=== PATIENT | male | born 1980 | race Caucasian/White ===

== ENCOUNTER 2022-12-07 15:23 | Inpatient (IN) ==
[2022-12-07] MEDS ORDERED: NS 1,000 ML IV 1,000 ML IV ONE (16:16)
[2022-12-07 16:36] VITALS: BMI 37.6
[2022-12-07 16:58] LABS: BASOPHILS % (AUTO) 0.1 % (0.2-1.0); EOSINOPHILS # (AUTO) 0.1 x10^3/uL (0.0-0.2); EOSINOPHILS % (AUTO) 0.4 % (0.9-2.9); HEMATOCRIT 43.5 % (42.0-54.0); HEMOGLOBIN 14.5 g/dL (13.5-18.0); LYMPHOCYTES # (AUTO) 0.5 X10^3/uL (1.3-2.9); LYMPHOCYTES % (AUTO) 3.5 % (21.0-51.0); MEAN CORPUSCULAR HEMOGLOBIN 27.3 pg (27.0-34.0); MEAN CORPUSCULAR HGB CONC 33.4 g/dL (33.0-35.0); MEAN CORPUSCULAR VOLUME 81.7 fL (80.0-100.0); MEAN PLATELET VOLUME 7.5 fL (7.4-11.0); MONOCYTES # (AUTO) 0.8 x10^3/uL (0.3-0.8); MONOCYTES % (AUTO) 4.9 % (0.0-13.0); NEUTROPHILS # (AUTO) 14.2 x10^3/uL (2.2-4.8); NEUTROPHILS % (AUTO) 91.1 % (42.0-75.0); PLATELET COUNT 265 X10^3/uL (150.0-450.0); RED BLOOD COUNT 5.32 X10^6/uL (4.7-6.0); RED CELL DISTRIBUTION WIDTH 13.7 % (11.6-16.5); WHITE BLOOD COUNT 15.6 X10^3/uL (3.6-10.0)
[2022-12-07 17:13] LABS: ALANINE AMINOTRANSFERASE 398 Units/L (12-78); ALBUMIN 4.3 g/dL (3.4-5.0); ALKALINE PHOSPHATASE 147 Units/L (46-116); AMYLASE 46 Units/L (25-115); ASPARTATE AMINO TRANSFERASE 497 Units/L (15-37); BLOOD UREA NITROGEN 13 mg/dL (7-18); CALCIUM 8.6 mg/dL (8.5-10.1); CHLORIDE 101 mmol/L (98-107); COR NA(FOR HYPERGLY) 141 mmol/L (136-145); CREATININE 1.28 mg/dL (0.70-1.30); GLUCOSE 125 mg/dL (65-99); LIPASE 120 Units/L (73-393); SODIUM 140 mmol/L (136-145); TOTAL PROTEIN 7.7 g/dL (6.4-8.2); eGFR NON BLACK RACES > 60 (>60)
[2022-12-07] MEDS: PEPCID 20 MG VIAL 20 MG in NS 50 ML IV 50 ML IV SCH ×2 (17:24→21:23)
[2022-12-07] MEDS: PROTONIX INJ 40 MG VIAL IVP SCH ×2 (17:24→21:23)
[2022-12-07 17:40] LABS: PLATELET MORPHOLOGY COMMENT NORMAL (NORMAL)
[2022-12-07] MEDS: NS 1,000 ML IV 1,000 ML IV SCH (18:45)
[2022-12-07 19:31] LABS: APPEARANCE,URINE CLEAR (CLEAR); COLOR,URINE YELLOW (YELLOW)
[2022-12-07 19:32] LABS: BILIRUBIN,URINE NEGATIVE (NEGATIVE); BLOOD/HEMOGLOBIN,URINE NEGATIVE (NEGATIVE); GLUCOSE, URINE NEGATIVE (NEGATIVE); KETONES,URINE NEGATIVE (NEGATIVE); LEUKOCYTE ESTERASE ,URINE NEGATIVE (NEGATIVE); NITRITES,URINE NEGATIVE (NEGATIVE); PROTEIN,URINE NEGATIVE (NEGATIVE); UROBILINOGEN,URINE NORMAL (NORMAL)
[2022-12-07] MEDS: ZOFRAN INJ 4 MG VIAL IVP PRN (21:18)
[2022-12-08] MEDS: NS 1,000 ML IV 1,000 ML IV SCH ×5 (00:34→23:23)
[2022-12-08] MEDS: TYLENOL 325 MG TAB PO PRN ×2 (03:42→20:04)
--- NOTE | 2022-12-08 05:40 | US ---
HISTORYRight upper quadrant painSTUDYRight quadrant abdominal ultrasoundCOMPARISONNoneTECHNIQUEMultipl e latif scale and color flow Doppler images of the right upper quadrant were obtained.FINDINGSThe liver heterogeneous echotexture likely the basis of fatty liver infiltration. No focal intraparenchymal mass or intrahepatic biliary ductal dilatation can be observed. The gallbladder fails to demonstrate evidence for cholelithiasis or layering sludge . The common bile duct is unremarkable measuring 3 mm. No pericholecystic fluid can be identified. However, gallbladder does appear to have a prominent wall measuring 4 mm in greatest thickness. This is a nonspecific finding may be on the basis of associated hepatocellular disease..The right kidney appears normal in size without focal parenchymal mass or nephrolithiasis. The right kidney measurers 11.4 x 4.4 x 5.4 cm. No hydronephrosis or perirenal fluid can be observed. The pancreas is largely obscured by overlying bowel gas.IMPRESSIONFatty liver infiltration.Nonspecific gallbladder wall thickening that is nonspecific and may be on the basis of associated pattern cellular disease.Electronically signed by: YVONNE CHAU (Dec 08, 2022 05:38:56)
[2022-12-08 06:25] LABS: BASOPHILS % (AUTO) 0.2 % (0.2-1.0); EOSINOPHILS % (AUTO) 0.1 % (0.9-2.9); HEMATOCRIT 40.6 % (42.0-54.0); HEMOGLOBIN 13.8 g/dL (13.5-18.0); LYMPHOCYTES # (AUTO) 0.3 X10^3/uL (1.3-2.9); LYMPHOCYTES % (AUTO) 1.8 % (21.0-51.0); MEAN CORPUSCULAR HEMOGLOBIN 27.5 pg (27.0-34.0); MEAN CORPUSCULAR VOLUME 80.9 fL (80.0-100.0); MEAN PLATELET VOLUME 8.2 fL (7.4-11.0); MONOCYTES # (AUTO) 0.7 x10^3/uL (0.3-0.8); MONOCYTES % (AUTO) 4.3 % (0.0-13.0); NEUTROPHILS # (AUTO) 15.6 x10^3/uL (2.2-4.8); NEUTROPHILS % (AUTO) 93.6 % (42.0-75.0); PLATELET COUNT 263 X10^3/uL (150.0-450.0); RED BLOOD COUNT 5.02 X10^6/uL (4.7-6.0); RED CELL DISTRIBUTION WIDTH 13.8 % (11.6-16.5); WHITE BLOOD COUNT 16.7 X10^3/uL (3.6-10.0)
[2022-12-08 07:02] LABS: ALANINE AMINOTRANSFERASE 717 Units/L (12-78); ALBUMIN 3.6 g/dL (3.4-5.0); ALKALINE PHOSPHATASE 144 Units/L (46-116); ASPARTATE AMINO TRANSFERASE 496 Units/L (15-37); BLOOD UREA NITROGEN 14 mg/dL (7-18); CALCIUM 8.2 mg/dL (8.5-10.1); CARBON DIOXIDE 24.8 mmol/L (21-32); CHLORIDE 102 mmol/L (98-107); COR NA(FOR HYPERGLY) 139 mmol/L (136-145); CREATININE 1.33 mg/dL (0.70-1.30); GLUCOSE 114 mg/dL (65-99); POTASSIUM 3.4 mmol/L (3.5-5.1); SODIUM 139 mmol/L (136-145); TOTAL PROTEIN 6.8 g/dL (6.4-8.2); eGFR NON BLACK RACES > 60 (>60)
[2022-12-08 07:35] LABS: BAND NEUTROPHILS % 20 % (0-10); PLATELET MORPHOLOGY COMMENT NORMAL (NORMAL)
[2022-12-08] MEDS ORDERED: BENTYL CAP 10 MG PO PRN (08:47)
[2022-12-08] MEDS: PROTONIX INJ 40 MG VIAL IVP SCH ×2 (08:50→20:03)
[2022-12-08] MEDS: PEPCID 20 MG VIAL 20 MG in NS 50 ML IV 50 ML IV SCH ×2 (09:13→20:03)
[2022-12-08] MEDS: FORTAZ or TAZICEF VIAL INJ 1 G in NS 100 ML IV 100 ML IV SCH ×3 (11:25→21:05)
--- NOTE | 2022-12-08 14:32 | DR.H&P ---
H&P - History & Physical for Day of: H&P Date: 12/07/22 - Chief Complaint Chief Complaint: ABDOMINAL PAIN, NAUSEA AND VOMITING - History of Present Illness History of Present Illness: IS A 42 YEAR OLD PATIENT OF OURS. HE PRESENTED TO THE OFFICE WITH COMPLAINTS OF RIGHT UPPER QUADRANT AND EPIGASTRIC PAIN AND NAUSEA AND VOMITING. HE REPORTS THAT SYMPTOMS STARTED FIVE OR 6 WEEKS AGO. HE DESCRIBES PAIN BURNING AND INTERMITTENT. PAIN AND NAUSEA/VOMITING ARE OFTEN WORSE ABOUT AN HOUR AFTER EATING. HE REPORTS THAT HIS SYMPTOMS ARE PERSISTENTLY GETTING WORSE. HE HAS BEEN TAKING PANTOPRAZOLE 40MG BID, DICYCLOMINE 20MG QID PRN, AND GI COCKTAIL QID SINCE 11/14/22 WITHOUT ANY IMPROVEMENT IN SYMPTOMS. DECISION WAS MADE TO ADMIT PATIENT TO THE HOSPITAL FOR FURTHER EVALUATION AND TREATMENT. ON ARRIVAL TO THE HOSPITAL, HIS VITALS WERE: 98.1-76-18-96%-149/84. LABS WERE OBTAINED. WBC 15.6, RBC 5.32, HGB 14.5, HCT 43.5, PLT COUNT 265, SODIUM 140, POTASSIUM 4.0, CHLORIDE 101, CARBON DIOXIDE 31.0, BUN 13, CREATININE 1.28, GLUCOSE 125, CALCIUM 8.6, TOTAL BILIRUBIN 2.00, AST 497, ALT 398, ALK PHOS 147, TOTAL PROTEIN 7.7, ALBUMIN 4.3. A URINALYSIS WAS OBTAINED AND WAS UNREMARKABLE. A URINE CULTURE WAS SET UP. A GALLBLADDER ULTRASOUND WAS OBTAINED AND REVELED: Fatty liver infiltration. Nonspecific gallbladder wall thickening that is nonspecific and may be on the basis of associated pattern cellular disease. HE WAS STARTED ON NORMAL SALINE AT 150 ML/HR, FORTAZ 1G IV Q8H, PEPCID 20MG IV Q12H, PROTONIX 40MG IV BID, DEMEROL 25MG IV Q6H PRN, ZOFRAN 4MG IV Q4H PRN, TYLENOL 650MG PO Q4H PRN, AND DICYCLOMINE 20MG PO QID PRN. WE WILL OBTAIN A HIDA SCAN. WE WILL ALSO OBTAIN A MRCP TO RULE OUT BILIARY TRACT OBSTRUCTION DUE TO ELEVATED LIVER FUNCTION TESTS. OTHERWISE, WE WILL FOLLOW-UP WITH AM LABS AND CONTINUE TO MONITOR. TIME SPENT ON CLINICAL ASSESSMENT, REVIEWING LABS AND IMAGING, DECISION MAKING, AND DOCUMENTATION GREATER THAN 75 MINUTES. - Past Medical History Past Medical History: GERD - Past Surgical History Surgical History: Ortho Surgery Additional Surgical History: RIGHT SHOULDER - Family History Family Medical History: Diabetes Mellitus - Social History Does patient currently use any type of tobacco product: No Have you used tobacco products in the last 12 months: No Type of Tobacco Use: None Does any household member use tobacco: No Alcohol Use: None Drug Use: None - Medications Home Medications: Home Medications Medication Instructions Recorded Confirmed Type Gi-Cocktail 10 ml PO QID PRN Acid Reflux 12/07/22 12/07/22 History dicyclomine 20 mg tablet 1 tab PO QID PRN 12/07/22 12/07/22 History pantoprazole 40 mg tablet,delayed 1 cap PO BID 12/07/22 12/07/22 History release - Review of Systems Constitutional: No Symptoms Reported Eyes: No Symptoms Reported ENT: No Symptoms Reported Respiratory: No Symptoms Reported Cardiovascular: No Symptoms Reported Gastrointestinal: See HPI, Nausea, Vomiting, Abdominal Pain. denies: Constipation, Melena, Hematochezia Genitourinary: No Symptoms Reported Musculoskeletal: No Symptoms Reported Skin: No Symptoms Reported Neurological: No Symptoms Reported - Physical Exam Vital Signs: Temperature 100 F Temperature 98.1 F Pulse Rate [Left Brachial] 92 Pulse Rate [Left Brachial] 76 Respiratory Rate 20 Respiratory Rate 18 Blood Pressure [Left Arm] 118/59 Blood Pressure [Left Arm] 149/84 O2 Sat by Pulse Oximetry 93 O2 Sat by Pulse Oximetry 96 Oriented: Normal Eyes: Normal Ear: Normal Nose: Normal Throat: Normal Respiratory: Clear Throughout Cardiovascular: Normal : Normal Auscultation: Bowel Sounds: Normal Palpation: Normal Tenderness: RUQ, Epigastric, Moderate Skin: Normal Musculoskeletal: Normal Psychiatric: Normal Mood Description: Calm Affect: Normal Speech Pattern: Clear - Assessment/Plan (1) Abdominal pain Qualifiers: Abdominal location: epigastric Qualified Code(s): R10.13 - Epigastric pain Status: Acute Plan: ADMIT, NORMAL SALINE AT 150 ML/HR, FORTAZ 1G IV Q8H, PEPCID 20MG IV Q12H, PROTONIX 40MG IV BID, DEMEROL 25MG IV Q6H PRN, ZOFRAN 4MG IV Q4H PRN, TYLENOL 650MG PO Q4H PRN, AND DICYCLOMINE 20MG PO QID PRN. OBTAIN HIDA SCAN AND MRCP (2) Nausea and vomiting Qualifiers: Vomiting type: unspecified Qualified Code(s): R11.2 - Nausea with vomiting, unspecified Status: Acute (3) Hyperbilirubinemia Status: Acute (4) Elevated liver function tests Status: Acute (5) Fever Qualifiers: Fever type: unspecified Qualified Code(s): R50.9 - Fever, unspecified Status: Acute (6) GERD (gastroesophageal reflux disease) Qualifiers: Esophagitis presence: esophagitis presence not specified Qualified Code(s): K21.9 - Gastro-esophageal reflux disease without esophagitis Status: Chronic - Allergies Allergies/Adverse Reactions: Allergies Allergy/AdvReac Type Severity Reaction Status Date / Time penicillin G Allergy Verified 12/07/22 16:37
[2022-12-08] MEDS: DEMEROL INJ IVP PRN (14:39)
[2022-12-08] MEDS: ZOFRAN INJ 4 MG VIAL IVP PRN (14:41)
--- NOTE | 2022-12-08 16:19 | MRI ---
HISTORYELEVATED LIVER ENZYMES, ABD PAINSTUDYMRCPCOMPARISONUltrasound dated 12/07/2022TECHNIQUEMultiplanar multi sequences through the abdomen were performed without contrast. MRCP with 3D MPGR was performed.FINDINGSThe liver measures in length approximately 18.3 centimeters with mild fatty changes the spleen measures 10.5 centimeters.There is no evidence of gallstones. Gallbladder measures in transverse dimension 3.6 centimeters. The wall measures approximately 2-3 millimeters, no significant stranding.No significant intrahepatic or extrahepatic biliary dilatation. Common bile duct measures in the distal aspect approximately 4-5 millimeters the pancreatic duct is nondilatedThere is no dominant cystic lesions in the pancreasThere ismild periportal edema.There is no suspicious for filling defects in the common bile ductPancreas demonstrate no abnormal signal. There is no adrenal massesThe spleen demonstrate no focal abnormalities.IMPRESSIONNo evidence of cholelithiasisNo significant distended gallbladder with trace pericholecystic fluid less, likely acute cholecystitis.No intra or extrahepatic biliary dilatation. No suspicious filling defects.Mild periportal edema can be seen with hepatitis. Clinical correlation is recommendedElectronically signed by: Sue Dailey (Dec 08, 2022 16:18:49)
--- NOTE | 2022-12-08 17:15 | NM ---
HISTORYRUQ PAIN, N/VSTUDYHIDA/HEPATOBILIARY SCAN W/EFCOMPARISONNoneTECHNIQUEThe patient was intravenously administered 5.7 mCi Tc-99m Choletec. Sequential planar anterior images were obtained of the abdomen for 2 hours.FINDINGSNormal radionuclide uptake in the liver parenchyma on the 5 minute image.No radionuclide material visualized in the intra/extrahepatic biliary ducts, small bowel or gallbladder during the 2 hours of imaging.IMPRESSIONPersistent hepatic gram with radionuclide material visualized in the intra/extrahepatic biliary ducts, small bowel or gallbladder during the 2 hours of imaging. Finding is concerning for a high-grade biliary obstruction.Electronically signed by: Gaurav Quintana (Dec 08, 2022 17:14:13)
[2022-12-09] MEDS: NS 1,000 ML IV 1,000 ML IV SCH ×3 (05:13→20:31)
[2022-12-09] MEDS: FORTAZ or TAZICEF VIAL INJ 1 G in NS 100 ML IV 100 ML IV SCH ×3 (05:13→22:15)
[2022-12-09] MEDS ORDERED: MICRO K EXTEN CAP 10 MEQ PO PRN (05:26)
[2022-12-09] MEDS ORDERED: K-DUR TAB 20 MEQ PO PRN (05:26)
[2022-12-09] MEDS ORDERED: MAGNESIUM SULFATE 1 GRAM/100 mL PREMIX 1 G/100 ML BAG IV PRN (05:26)
[2022-12-09] MEDS ORDERED: KLOR-CON PO PRN (05:26)
[2022-12-09] MEDS ORDERED: POTASSIUM CHL 40 MEQ/NS 0.45% 500 ML IV PRN (05:26)
[2022-12-09] MEDS ORDERED: POTASSIUM CHLORIDE LIQ 20 MEQ UDC PO PRN (05:26)
[2022-12-09] MEDS ORDERED: POTASSIUM CHL 60 MEQ/NS 0.45% 500 ML IV PRN (05:26)
[2022-12-09] MEDS ORDERED: K-RIDER 10 MEQ/NS 100 ML 10 MEQ/100 ML BAG IV PRN (05:26)
[2022-12-09 06:45] LABS: BASOPHILS % (AUTO) 0.4 % (0.2-1.0); EOSINOPHILS # (AUTO) 0.3 x10^3/uL (0.0-0.2); EOSINOPHILS % (AUTO) 2.3 % (0.9-2.9); HEMATOCRIT 38.5 % (42.0-54.0); HEMOGLOBIN 13.3 g/dL (13.5-18.0); LYMPHOCYTES # (AUTO) 0.5 X10^3/uL (1.3-2.9); LYMPHOCYTES % (AUTO) 4.5 % (21.0-51.0); MEAN CORPUSCULAR HEMOGLOBIN 28.1 pg (27.0-34.0); MEAN CORPUSCULAR HGB CONC 34.4 g/dL (33.0-35.0); MEAN CORPUSCULAR VOLUME 81.5 fL (80.0-100.0); MEAN PLATELET VOLUME 7.9 fL (7.4-11.0); MONOCYTES # (AUTO) 0.8 x10^3/uL (0.3-0.8); MONOCYTES % (AUTO) 7.2 % (0.0-13.0); NEUTROPHILS # (AUTO) 9.5 x10^3/uL (2.2-4.8); NEUTROPHILS % (AUTO) 85.6 % (42.0-75.0); PLATELET COUNT 213 X10^3/uL (150.0-450.0); RED BLOOD COUNT 4.72 X10^6/uL (4.7-6.0); WHITE BLOOD COUNT 11.1 X10^3/uL (3.6-10.0)
[2022-12-09 06:53] LABS: ALANINE AMINOTRANSFERASE 417 Units/L (12-78); ALBUMIN 3.2 g/dL (3.4-5.0); ALKALINE PHOSPHATASE 115 Units/L (46-116); ASPARTATE AMINO TRANSFERASE 160 Units/L (15-37); BLOOD UREA NITROGEN 13 mg/dL (7-18); CARBON DIOXIDE 28.8 mmol/L (21-32); CHLORIDE 103 mmol/L (98-107); COR CA(FOR HYPOALB) 8.6 mg/dL (8.5-10.1); COR NA(FOR HYPERGLY) 139 mmol/L (136-145); CREATININE 1.36 mg/dL (0.70-1.30); GLUCOSE 113 mg/dL (65-99); MAGNESIUM 1.8 mg/dL (2.0-2.9); POTASSIUM 3.7 mmol/L (3.5-5.1); SODIUM 139 mmol/L (136-145); TOTAL PROTEIN 6.7 g/dL (6.4-8.2); eGFR NON BLACK RACES > 60 (>60)
[2022-12-09] MEDS: DEMEROL INJ IVP PRN ×2 (08:51→20:32)
[2022-12-09] MEDS: PEPCID 20 MG VIAL 20 MG in NS 50 ML IV 50 ML IV SCH ×2 (08:51→20:27)
[2022-12-09] MEDS: PROTONIX INJ 40 MG VIAL IVP SCH ×2 (08:51→20:27)
[2022-12-09 12:30] LABS: IRON 20 ug/dL (50-175)
--- NOTE | 2022-12-09 18:06 | PCM.PROG ---
Progress Note - Progress Note for Day of Date of Exam: 12/09/22 - Subjective Subjective: IS A 42 YEAR OLD PATIENT OF OURS. HE IS CURRENTLY INPATIENT STATUS FOR TREATMENT OF HYPERBILIRUBINEMIA, ELEVATED LIVER FUNCTION TESTS, ABDOMINAL PAIN, NAUSEA AND VOMITING, AND FEVER. HE HAS A PMH OF GERD. TODAY, HE IS ALERT AND ORIENTED, LYING IN BED ON MORNING ROUNDS. HE CONTINUES TO COMPLAIN OF PAIN TO THE RUQ AND EPIGASTRIC AREA. HE ALSO CONTINUES TO HAVE OCCASIONAL NAUSEA. HE DENIES SIGNIFICANT IMPROVEMENT IN SYMPTOMS SINCE ADMISSION. ON EXAMINATION TODAY, HE IS NOTED WITH JAUNDICE OF THE SCLERA AND AROUND THE EYES. HEART IS REGULAR IN RATE AND RHYTHM. BILATERAL LUNGS ARE NOTED WITH DIMINISHED LUNG SOUNDS THROUGHOUT. ABDOMEN IS ROUND, SOFT, AND NOTED WITH TENDERNESS TO THE RUQ ON PALPATION. NORMAL BOWEL SOUNDS ARE NOTED IN ALL QUADRANTS. GOOD MOVEMENT NOTED TO UPPER AND LOWER EXTREMITIES WITH NO EDEMA NOTED. HIS VITALS THIS MORNING WERE: 98.0-63-20-95%-135/69. LABS WERE OBTAINED. WBC 11.1, RBC 4.72, HGB 13.3, HCT 38.5, PLT COUNT 213, SODIUM 139, POTASSIUM 3.7, CHLORIDE 103, BUN 13, CREATININE 1.36, GLUCOSE 113, CALCIUM 8.0, MAGNESIUM 1.8, IRON 20, FERRITIN 661, TOTAL BILI INCREASED TO 5.30, AST 160, ALT 417, ALK PHOS 115, TOTAL PROTEIN 6.7, ALBUMIN 3.2. A HEPATITIS PANEL IS PENDING. URINE CULTURE IS PENDING. A HIDA SCAN WAS OBTAINED YESTERDAY AND REVEALED: Persistent hepatic gram with radionuclide material visualized in the intra/extrahepatic biliary ducts, small bowel or gallbladder during the 2 hours of imaging. Finding is concerning for a high-grade biliary obstruction. MRCP WAS OBTAINED AND REVEALED: No evidence of cholelithiasis. No significant distended gallbladder with trace pericholecystic fluid less, likely acute cholecystitis. No intra or e xtrahepatic biliary dilatation. No suspicious filling defects. Mild periportal edema can be seen with hepatitis. HE IS CURRENTLY RECEIVING NORMAL SALINE AT 150 ML/HR, FORTAZ 1G IV Q8H, PEPCID 20MG IV Q12H, PROTONIX 40MG IV BID, DEMEROL 25MG IV Q6H PRN, ZOFRAN 4MG IV Q4H PRN, TYLENOL 650MG PO Q4H PRN, AND DICYCLOMINE 20MG PO QID PRN. 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 HE FEELS THAT PATIENT MAY HAVE CHOLESTATIC JAUNDICE, HE WAS RECENTLY TAKING [place] AND HAS EXPERIENCED A RAPID WEIGHT LOSS. HE HAS LOST ABOUT 60 POUNDS OVER THE PAST SEVERAL MONTHS. WILL SEE HIM TODAY AND ORDER SOME ADDITIONAL LABS. WE WILL ALSO CONSULT , GENERAL SURGEON, DUE TO SUSPECTED ACUTE CHOLEC YSTITIS. OTHERWISE, WE WILL CONTINUE WITH CURRENT PLAN OF CARE TODAY. WE WILL FOLLOW-UP WITH AM LABS AND CONTINUE TO MONITOR. TIME SPENT ON CLINICAL ASSESSMENT, REVIEWING LABS AND IMAGING, DECISION MAKING, AND DOCUMENTATION GREATER THAN 45 MINUTES. - Past Medical Family Social History Past Med/Fam/Surg Hx: No changes since H&P Allergies: Allergies penicillin G Allergy (Verified 12/07/22 16:37) - Review of Systems ROS: No change since H&P - Vital Signs and I&O's Vital Signs: Temperature 97.8 F Temperature 98.1 F Pulse Rate [Left Brachial] 56 Pulse Rate [Left Brachial] 76 Respiratory Rate 20 Respiratory Rate 18 Blood Pressure [Left Arm] 157/84 Blood Pressure [Left Arm] 149/84 O2 Sat by Pulse Oximetry 97 O2 Sat by Pulse Oximetry 96 Intake and Output: Intake & Output 12/07/22 12/08/22 12/09/22 12/10/22 11:59 11:59 11:59 11:59 Intake Total 2664 / 2664 2778 / 2778 1469 / 1469 Balance 2664 / 2664 2778 / 2778 1469 / 1469 - Physical Exam Oriented: Normal Eyes: Other (JAUNDICE ) Ear: Normal Nose: Normal Throat: Normal Respiratory: Generalized, Diminished Cardiovascular: Normal : Normal Auscultation: Bowel Sounds: Normal Tenderness: RUQ, Epigastric, Moderate Skin: Other (JAUNDICE ) Musculoskeletal: Normal Psychiatric: Normal Mood Description: Calm Affect: Normal Speech Pattern: Clear - Laboratory and Diagnostics Result Diagrams: 12/09/22 06:20 12/09/22 06:20 Labs: 12/07/22 19:00 Urine,Clean Catch Urine Culture - Final Laboratory WBC 11.1 X10^3/uL (3.6-10.0) H 12/09/22 06:20 RBC 4.72 X10^6/uL (4.7-6.0) 12/09/22 06:20 Hgb 13.3 g/dL (13.5-18.0) L 12/09/22 06:20 Hct 38.5 % (42.0-54.0) L 12/09/22 06:20 MCV 81.5 fL (80.0-100.0) 12/09/22 06:20 MCH 28.1 pg (27.0-34.0) 12/09/22 06:20 MCHC 34.4 g/dL (33.0-35.0) 12/09/22 06:20 RDW 14.0 % (11.6-16.5) 12/09/22 06:20 Plt Count 213 X10^3/uL (150.0-450.0) 12/09/22 06:20 Plt Count Comment Adequate (ADEQUATE) 12/08/22 05:07 MPV 7.9 fL (7.4-11.0) 12/09/22 06:20 Neut % (Auto) 85.6 % (42.0-75.0) H 12/09/22 06:20 Lymph % (Auto) 4.5 % (21.0-51.0) L 12/09/22 06:20 [place] % (Auto) 7.2 % (0.0-13.0) 12/09/22 06:20 Eos % (Auto) 2.3 % (0.9-2.9) 12/09/22 06:20 Baso % (Auto) 0.4 % (0.2-1.0) 12/09/22 06:20 Neut # (Auto) 9.5 x10^3/uL (2.2-4.8) H 12/09/22 06:20 Lymph # (Auto) 0.5 X10^3/uL (1.3-2.9) L 12/09/22 06:20 [place] # (Auto) 0.8 x10^3/uL (0.3-0.8) 12/09/22 06:20 Eos # (Auto) 0.3 x10^3/uL (0.0-0.2) H 12/09/22 06:20 Baso # (Auto) 0.0 X10^3/uL (0.0-0.1) 12/09/22 06:20 Absolute Nucleated RBC 0.9 /100WBC 12/09/22 06:20 Total Counted 100 12/08/22 05:07 Neutrophils % (Manual) 77 % (39-76) H 12/08/22 05:07 Band Neutrophils % 20 % (0-10) H 12/08/22 05:07 Lymphocytes % (Manual) 1 % (13-43) L 12/08/22 05:07 Monocytes % (Manual) 2 % (4-9) L 12/08/22 05:07 Plt Morphology Comment Normal (NORMAL) 12/08/22 05:07 RBC Morphology Normal (NORMAL) 12/08/22 05:07 Sodium 139 mmol/L (136-145) 12/09/22 06:20 Corrected Sodium 139 mmol/L (136-145) 12/09/22 06:20 Potassium 3.7 mmol/L (3.5-5.1) 12/09/22 06:20 Chloride 103 mmol/L (98-107) 12/09/22 06:20 Carbon Dioxide 28.8 mmol/L (21-32) 12/09/22 06:20 BUN 13 mg/dL (7-18) 12/09/22 06:20 Creatinine 1.36 mg/dL (0.70-1.30) H 12/09/22 06:20 Est GFR (MDRD) Af Amer > 60 (>60) 12/09/22 06:20 Est GFR (MDRD) Non-Af > 60 (>60) 12/09/22 06:20 Glucose 113 mg/dL (65-99) H 12/09/22 06:20 Calcium 8.0 mg/dL (8.5-10.1) L 12/09/22 06:20 Corrected Calcium 8.6 mg/dL (8.5-10.1) 12/09/22 06:20 Magnesium 1.8 mg/dL (2.0-2.9) L 12/09/22 06:20 Iron 19 ug/dL (50-175) L 12/09/22 11:41 Iron 20 ug/dL (50-175) L 12/09/22 11:41 TIBC 213 ug/dL (250-450) L 12/09/22 11:41 % Saturation 8.9 % (11.0-46.0) L 12/09/22 11:41 Ferritin 661 ng/mL (26-388) H 12/09/22 11:41 Total Bilirubin 5.30 mg/dL (0.2-1.0) H 12/09/22 06:20 AST 160 Units/L (15-37) H 12/09/22 06:20 ALT 417 Units/L (12-78) H 12/09/22 06:20 Alkaline Phosphatase 115 Units/L (46-116) 12/09/22 06:20 Total Protein 6.7 g/dL (6.4-8.2) 12/09/22 06:20 Albumin 3.2 g/dL (3.4-5.0) L 12/09/22 06:20 Globulin 3.5 g/dL (2.5-4.5) 12/09/22 06:20 Albumin/Globulin Ratio 0.9 Ratio (1.1-2.1) L 12/09/22 06:20 Amylase 46 Units/L (25-115) 12/07/22 16:48 Lipase 120 Units/L (73-393) 12/07/22 16:48 Specimen Type Clean catch urine 12/07/22 19:00 Urine Color Yellow (YELLOW) 12/07/22 19:00 Urine Appearance Clear (CLEAR) 12/07/22 19:00 Urine pH 8.0 (5.0 - 8.0) 12/07/22 19:00 Ur Specific [place] 1.015 (1.000-1.030) 12/07/22 19:00 Urine Protein Negative (NEGATIVE) 12/07/22 19:00 Urine Glucose (UA) Negative (NEGATIVE) 12/07/22 19:00 Urine Ketones Negative (NEGATIVE) 12/07/22 19:00 Urine Blood Negative (NEGATIVE) 12/07/22 19:00 Urine Nitrite Negative (NEGATIVE) 12/07/22 19:00 Urine Bilirubin Negative (NEGATIVE) 12/07/22 19:00 Urine Urobilinogen Normal (NORMAL) 12/07/22 19:00 Ur Leukocyte Esterase Negative (NEGATIVE) 12/07/22 19:00 - Plan (1) Abdominal pain Status: Acute Qualifiers: Abdominal location: epigastric Qualified Code(s): R10.13 - Epigastric pain Plan: NORMAL SALINE AT 150 ML/HR, FORTAZ 1G IV Q8H, PEPCID 20MG IV Q12H, PROTONIX 40MG IV BID, DEMEROL 25MG IV Q6H PRN, ZOFRAN 4MG IV Q4H PRN, TYLENOL 650MG PO Q4H PRN, AND DICYCLOMINE 20MG PO QID PRN. CONSULT GENERAL SURGERY AND GASTROENTEROLOGY (2) Acute cholecystitis Status: Acute (3) Cholestatic jaundice Status: Acute (4) Nausea and vomiting Status: Acute Qualifiers: Vomiting type: unspecified Qualified Code(s): R11.2 - Nausea with vomiting, unspecified (5) Hyperbilirubinemia Status: Acute (6) Elevated liver function tests Status: Acute (7) Fever Status: Acute Qualifiers: Fever type: unspecified Qualified Code(s): R50.9 - Fever, unspecified (8) GERD (gastroesophageal reflux disease) Status: Chronic Qualifiers: Esophagitis presence: esophagitis presence not specified Qualified Code(s): K21.9 - Gastro-esophageal reflux disease without esophagitis
[2022-12-09] MEDS: TYLENOL 325 MG TAB PO PRN (18:19)
--- NOTE | 2022-12-09 23:53 | DR.CONSULT ---
CONSULT Consultation for Day of: Date: 12/09/22 Chief Complaint Chief Complaint: RUQ pain with meals . Allergies Allergies Allergy/AdvReac Type Severity Reaction Status Date / Time penicillin G Allergy Verified 12/07/22 16:37 History of Present Illness History of Present Illness: 42 year old male with recent plan weight loss by using semiglutide of over 60 lb. He has had several week history of right upper quadrant pain often with meals. Ultrasound shows no evidence of gallstones. Ultrasound does show thickening of the gallbladder wall. Recent MRCP show no obstruction although the patient has had elevation of the liver function tests. HIDA scan showed marker going through the biliary tree consistent with bile duct obstruction not corroborated by the MRCP. Past Medical History Past Medical History: GERD Past Surgical History Surgical History: Ortho Surgery Additional Surgical History: RIGHT SHOULDER Family History Family Medical History: Diabetes Mellitus Social History Does patient currently use any type of tobacco product: No Have you used tobacco products in the last 12 months: No Type of Tobacco Use: None Does any household member use tobacco: No Alcohol Use: None Drug Use: None Medications Home Medications: penicillin G Allergy (Verified 12/07/22 16:37) CONTINUE taking the following medications Gi-Cocktail 10 ml PO QID PRN Acid Reflux 12/07/22 [History] dicyclomine 20 mg tablet 1 tab PO QID PRN 12/07/22 [History] pantoprazole 40 mg tablet,delayed release 1 cap PO BID 12/07/22 [History] Review of Systems Constitutional: See HPI Eyes: No Symptoms Reported ENT: No Symptoms Reported Respiratory: No Symptoms Reported Cardiovascular: No Symptoms Reported Gastrointestinal: See HPI Genitourinary: No Symptoms Reported Musculoskeletal: No Symptoms Reported Skin: No Symptoms Reported Neurological: No Symptoms Reported Physical Exam Vital Signs: Temperature 99.1 F Temperature 98.1 F Pulse Rate [Left Brachial] 60 Pulse Rate [Left Brachial] 76 Respiratory Rate 16 Respiratory Rate 18 Blood Pressure [Left Arm] 127/68 Blood Pressure [Left Arm] 149/84 O2 Sat by Pulse Oximetry 95 O2 Sat by Pulse Oximetry 96 Oriented: Normal, Time, Person, Place and Other (obese male with BMI of 39.) Eyes: Normal ( no scleral icterus) Ear: Normal Nose: Normal Throat: Normal Respiratory: Clear Throughout Cardiovascular: Normal : Normal Auscultation: Bowel Sounds: Normal Palpation: Normal Tenderness: RUQ (mild) Skin: Normal Musculoskeletal: Normal Psychiatric: Normal Mood Description: Depressed Affect: Normal Speech Pattern: Clear Plan (1) Abdominal pain: Status: Acute Qualifiers: Abdominal location: epigastric Qualified Code(s): R10.13 - Epigastric pain Narrative Support Text: Conflicting reports with elevated LFTs , norrnal MRCP. Abnomal filling of bile duct on HIDA, gallbladder not visualized on HIDA scan and gallbladder wall thickening . All in all this appears to be a poorly functioning gallbladder with chronic acalculous cholecystitis . Will plan laparoscopic choelcystectomy tomorrow with cholangiogram . Risks and benefits , including the possibility of not resolving this with removal of his gallbladder discussed and he agrees to proceed (2) Acute cholecystitis: Status: Acute (3) Cholestatic jaundice: Status: Acute (4) Nausea and vomiting: Status: Acute Qualifiers: Vomiting type: unspecified Qualified Code(s): R11.2 - Nausea with vomiting, unspecified (5) Hyperbilirubinemia: Status: Acute (6) Elevated liver function tests: Status: Acute (7) Fever: Status: Acute Qualifiers: Fever type: unspecified Qualified Code(s): R50.9 - Fever, unspecified (8) GERD (gastroesophageal reflux disease): Status: Chronic Qualifiers: Esophagitis presence: esophagitis presence not specified Qualified Code(s): K21.9 - Gastro-esophageal reflux disease without esophagitis
[2022-12-10] MEDS: NS 1,000 ML IV 1,000 ML IV SCH ×4 (05:34→19:06)
[2022-12-10] MEDS: FORTAZ or TAZICEF VIAL INJ 1 G in NS 100 ML IV 100 ML IV SCH ×3 (05:35→21:12)
[2022-12-10 06:39] LABS: BASOPHILS % (AUTO) 0.7 % (0.2-1.0); EOSINOPHILS # (AUTO) 0.2 x10^3/uL (0.0-0.2); EOSINOPHILS % (AUTO) 3.7 % (0.9-2.9); HEMATOCRIT 40.3 % (42.0-54.0); HEMOGLOBIN 13.5 g/dL (13.5-18.0); LYMPHOCYTES # (AUTO) 0.7 X10^3/uL (1.3-2.9); LYMPHOCYTES % (AUTO) 10.6 % (21.0-51.0); MEAN CORPUSCULAR HEMOGLOBIN 27.4 pg (27.0-34.0); MEAN CORPUSCULAR HGB CONC 33.5 g/dL (33.0-35.0); MEAN CORPUSCULAR VOLUME 81.7 fL (80.0-100.0); MEAN PLATELET VOLUME 8.3 fL (7.4-11.0); MONOCYTES # (AUTO) 0.6 x10^3/uL (0.3-0.8); MONOCYTES % (AUTO) 8.9 % (0.0-13.0); NEUTROPHILS # (AUTO) 5.2 x10^3/uL (2.2-4.8); NEUTROPHILS % (AUTO) 76.1 % (42.0-75.0); PLATELET COUNT 203 X10^3/uL (150.0-450.0); RED BLOOD COUNT 4.93 X10^6/uL (4.7-6.0); WHITE BLOOD COUNT 6.8 X10^3/uL (3.6-10.0)
[2022-12-10 07:07] LABS: ALANINE AMINOTRANSFERASE 335 Units/L (12-78); ALBUMIN 3.2 g/dL (3.4-5.0); ALKALINE PHOSPHATASE 118 Units/L (46-116); ASPARTATE AMINO TRANSFERASE 119 Units/L (15-37); BLOOD UREA NITROGEN 10 mg/dL (7-18); CARBON DIOXIDE 26.9 mmol/L (21-32); CHLORIDE 102 mmol/L (98-107); COR CA(FOR HYPOALB) 8.6 mg/dL (8.5-10.1); CREATININE 1.16 mg/dL (0.70-1.30); GLUCOSE 100 mg/dL (65-99); POTASSIUM 3.8 mmol/L (3.5-5.1); SODIUM 140 mmol/L (136-145); eGFR NON BLACK RACES > 60 (>60)
--- NOTE | 2022-12-10 08:11 | DR.CONSULT ---
Consult - Consultation for Day of: Date: 12/10/22 - Chief Complaint Chief Complaint: Jaundice - History of Present Illness History of Present Illness: Patient referred for jaundice. He was admitted for N/V, abdominal pain, and was noted to have abnormal LFTs. N/V has now improved, patient states he had similar episodes at least 4-5x in the few months. He has been on Mounjaro for weight loss, and has lost 60 lbs rapidly. Patient has been off of this medication for the last 3 months. Patient denies taking any other medications except Lisinopril, recently. Patient underwent MRCP and MRI of liver, and HIDA scan. The MRI findings do not suggest CBD obstruction, the HIDA scan showed uptake by the liver, but no excretion into the bile ducts, typical for cholestasis. Patient at present has complaints of food intolerance, he has been seen by surgery and is scheduled for cholecystectomy today. - Past Medical History Past Medical History: GERD - Past Surgical History Surgical History: Ortho Surgery Additional Surgical History: RIGHT SHOULDER - Family History Family Medical History: Diabetes Mellitus - Social History Does patient currently use any type of tobacco product: No Have you used tobacco products in the last 12 months: No Type of Tobacco Use: None Does any household member use tobacco: No Alcohol Use: None Drug Use: None - Medications Home Medications: penicillin G Allergy (Verified 12/07/22 16:37) CONTINUE taking the following medications Gi-Cocktail 10 ml PO QID PRN Acid Reflux 12/07/22 [History] dicyclomine 20 mg tablet 1 tab PO QID PRN 12/07/22 [History] pantoprazole 40 mg tablet,delayed release 1 cap PO BID 12/07/22 [History] - Review of Systems Constitutional: See HPI. denies: No Symptoms Reported, Fever, Chills, Sweats, Weakness, Malaise, Other Eyes: No Symptoms Reported. denies: See HPI, Pain, Vision Change, Conjunctivae Inflammation, Eyelid Inflammation, Redness, Other ENT: No Symptoms Reported. denies: See HPI, Ear Pain, Ear Discharge, Nose Pain, Nose Discharge, Nose Congestion, Mouth Pain, Mouth Swelling, Throat Pain, Throat Swelling, Other Respiratory: No Symptoms Reported. denies: See HPI, Cough, Dry, Shortness of Breath, Hemoptysis, SOB with Excertion, Pleuritic Pain, Sputum, Wheezing, Other Cardiovascular: No Symptoms Reported. denies: Chest Pain, See HPI, Palpitat ions, Orthopnea, Paroxysmal Noc. Dyspnea, Edema, Light Headedness, Other Gastrointestinal: Nausea, Vomiting, Abdominal Pain, Other (jaundice). denies: No Symptoms Reported, See HPI, Diarrhea, Constipation, Melena, Hematochezia Genitourinary: No Symptoms Reported. denies: See HPI, Dysuria, Frequency, Incontinence, Hematuria, Retention, Other Musculoskeletal: No Symptoms Reported. denies: See HPI, Shoulder Pain, Arm Pain, Back Pain, Hand Pain, Leg Pain, Foot Pain, Neck Pain, Other Skin: No Symptoms Reported. denies: See HPI, Rash, Lesions, Jaundice, Bruising, Wound, Ecchymosis, Other Neurological: No Symptoms Reported. denies: See HPI, Weakness, Numbness, Incoordination, Change in Speech, Confusion, Seizures, Other - Physical Exam Vital Signs: Temperature 97.9 F Temperature 98.1 F Pulse Rate [Left Brachial] 50 Pulse Rate [Left Brachial] 76 Respiratory Rate 18 Respiratory Rate 18 Blood Pressure [Left Arm] 148/71 Blood Pressure [Left Arm] 149/84 O2 Sat by Pulse Oximetry 96 O2 Sat by Pulse Oximetry 96 Oriented: Normal. negative: Time, Person, Place, Not Oriented, Unable to test, Other Eyes: Other (jaundice). negative: Normal, Blurred Vision, Diplopia, Discharge, Pain, Redness, Photophobia Ear: Normal. negative: Right, Left, Swelling, Ecchymosis, Hemotypanum, Abrasion, Laceration Nose: Normal. negative: Injected, Discharge, Blood, Other Throat: Normal. negative: Tonsillar Hypertrophy, Red, Exudate, Dry, Other Respiratory: Clear Throughout. negative: Diminished Throughout, Rhonchi Throughout, Rales Throughout, Wheezes Throughout, RUL Clear, RML Clear, RLL Clear, ALANA Clear, LML Clear, LLL Clear, RUL Diminished, RML Diminished, RLL Diminished, ALANA Diminished, LML Diminished, LLL Diminished, RUL Absent, RML Absent, RLL Absent, ALANA Absent, LML Absent, LLL Absent, RUL Rhonchi, RML Rhonchi, RLL Rhonchi, ALANA Rhonchi, LML Rhonchi, LLL Rhonchi, RUL Insp. Wheeze, RML Insp. Wheeze, RLL Insp. Wheeze, ALANA Insp.Wheeze, LML Insp.Wheeze, LLL Insp.Wheeze, RUL Exp. Wheeze, RML Exp. Wheeze, RLL Exp. Wheeze, ALANA Exp. Wheeze, LML Exp. Wheeze, LLL Exp. Wheeze, RUL Rales, RML Rales, RLL Rales, ALANA Rales, LML Rales, LLL Rales, RUL Rub, RML Rub, RLL Rub, ALANA Rub, LML Rub, LLL Rub, RUL Squeak, RML Squeak, RLL Squeak, ALANA Squeak, LML Squeak, LLL Squeak Cardiovascular: Normal. negative: Tachycardia, Bradycardia, Irregular, S3, S4, Systolic, Diastolic, Murmur, Edema, Other : Normal. negative: Dysuria, Hematuria, Frequency, Discharge, Testicular Pain, Bleeding, , Other Auscultation: Bowel Sounds: Normal. negative: Bruit, Absent, Increased, Decreased, High Pitched, Other Palpation: Normal. negative: Spleen Enlarged, Liver Enlarged, Mass Pulsatile, Other Tenderness: RUQ. negative: Normal, Diffuse, RLQ, LUQ, LLQ, Epigastric, Periumbilical, Suprapubic, Mild, Moderate, Severe, Rebound, Guarding, Rigidity, Other Skin: Other (Jaundice). negative: Normal, Decreased Turgur, Rash, Papular, Macular, Maculopapular, Vesicular, Pustular, Petechial, Red, Tender, Hot, Diaph oresis, Wound, Bruising, Ecchymosis Musculoskeletal: Normal. negative: Right, Left, Shoulder, Clavicle, Arm, Elbow, Forearm, Wrist, Hand, Hip, Thigh, Knee, Leg, Ankle, Foot, Back:Thoracic, Back:Lumbar, Back:Midline, Back:Paraspinous, Pelvis, Swelling, Tender, Deformity, Pulse Deficit, Motor Deficit, Sensory Deficit, Instability, Crepitance Psychiatric: Normal. negative: Anxiety, Depression, Agitation, Other Mood Description: Calm, Appropriate. negative: Angry, Apathetic, Depressed, Fearful, Flat, Happy, Hostile, Sad, Suspicious, Withdrawn, Anxious, Labile Affect: Normal. negative: Angry, Anxious, Depressed, Flat, Hysterical, Quiet, Violent Speech Pattern: Clear, Appropriate. negative: Unclear, Inappropriate, Delayed, Slurred, Excessive, Aphasic, Artificially Ventilated, Trach(not ventilated) - Plan Plan: Assessment. 1. Cholestatic jaundice, R/O viral etiologies, R/O medication reaction, R/O other etiologies. 2. Episodic upper abdominal pain, nausea, vomiting, possible gallbladder dysfunction (dyskinesia). Plan: Serologic liver workup for various liver diseases. I have discussed with Dr. Crabtree and have suggested a liver biopsy at time of cholecystectomy. Monitor LFTs periodically. F/U as outpatient after discharge. - Allergies Allergies/Adverse Reactions: Allergies Allergy/AdvReac Type Severity Reaction Status Date / Time penicillin G Allergy Verified 12/07/22 16:37
[2022-12-10] MEDS: PROTONIX INJ 40 MG VIAL IVP SCH ×2 (08:40→20:33)
[2022-12-10] MEDS: PEPCID 20 MG VIAL 20 MG in NS 50 ML IV 50 ML IV SCH ×2 (10:00→20:33)
[2022-12-10] MEDS ORDERED: MAGNESIUM SULFATE 50% INJ VIAL ONE (13:34)
[2022-12-10] MEDS ORDERED: DIPRIVAN VIAL 20 ML ONE (13:34)
[2022-12-10] MEDS ORDERED: ZOFRAN INJ 4 MG VIAL ONE (13:35)
[2022-12-10] MEDS ORDERED: DECADRON INJ ONE (13:35)
[2022-12-10] MEDS ORDERED: PEPCID 20 MG VIAL ONE (13:35)
[2022-12-10] MEDS ORDERED: ZEMURON 100 MG VIAL ONE (13:35)
[2022-12-10] MEDS ORDERED: VERSED ONE (13:36)
[2022-12-10] MEDS ORDERED: FENTANYL VIAL INJ 100 mcg ONE (13:37)
[2022-12-10] MEDS ORDERED: MARCAINE/EPINEPHRINE ONE (14:10)
[2022-12-10] MEDS ORDERED: STERILE WATER IRRIGATION IR ONE (14:23)
[2022-12-10] MEDS ORDERED: ANCEF VIAL 1 GRAM ONE (14:34)
[2022-12-10] MEDS ORDERED: NS 100 ML IV 100 ML ONE (14:34)
[2022-12-10] MEDS ORDERED: LR 1,000 ML IV 1,000 ML IV ONE (14:34)
[2022-12-10] MEDS ORDERED: GLUCAGEN ONE (14:50)
[2022-12-10] MEDS ORDERED: SUPRANE ONE (14:50)
[2022-12-10] MEDS ORDERED: BRIDION ONE (15:25)
[2022-12-10] MEDS ORDERED: DILAUDID INJ ONE (15:44)
[2022-12-10] MEDS ORDERED: BARHEMSYS INJ IVP PRN (16:27)
[2022-12-10] MEDS ORDERED: BENADRYL INJ 50 MG VIAL IVP PRN (16:27)
[2022-12-10] MEDS ORDERED: ZOFRAN INJ 4 MG VIAL IVP PRN (16:27)
[2022-12-10] MEDS ORDERED: DILAUDID INJ IVP PRN (16:27)
[2022-12-10] MEDS ORDERED: REGLAN INJ 10 MG VIAL IVP PRN (16:27)
--- NOTE | 2022-12-10 16:56 | OR.IMMED ---
IMMEDIATE POST-OP NOTE Immediate Post-Op Note Date of surgery/procedure: 12/10/22 Pre-Op Diagnosis: cholecystitis , cholestasis, Post-Op Diagnosis: same, possible Sphincter of Reji malfunction Procedure: Laparoscopic cholecystectomy , cholangiogram and needle liver biopsy x 3 Description of Procedure: see operative report Surgeon/Call Center Coordinator: Leyda Findings: gallbladder chronically inflamed, Initially common bile duct did not empty into duodenum until glucagon given. Specimens Removed: gallbladder Drains: Deejay Lama (#10 KRISTAL drain in Spears's pouch) Post Hospital Plans and Medications: Patient returned to the floor. We will see how he does.
[2022-12-10] MEDS: PERCOCET TAB 5/325 MG PO PRN (20:36)
[2022-12-11] MEDS: NS 1,000 ML IV 1,000 ML IV SCH ×3 (01:05→10:32)
[2022-12-11] MEDS: PERCOCET TAB 5/325 MG PO PRN (03:30)
[2022-12-11 04:14] VITALS: TEMP 97.7
[2022-12-11] MEDS: FORTAZ or TAZICEF VIAL INJ 1 G in NS 100 ML IV 100 ML IV SCH (05:15)
[2022-12-11 05:59] LABS: BASOPHILS % (AUTO) 0.3 % (0.2-1.0); EOSINOPHILS % (AUTO) 0.1 % (0.9-2.9); HEMOGLOBIN 13.1 g/dL (13.5-18.0); LYMPHOCYTES # (AUTO) 0.7 X10^3/uL (1.3-2.9); LYMPHOCYTES % (AUTO) 8.8 % (21.0-51.0); MEAN CORPUSCULAR HGB CONC 34.5 g/dL (33.0-35.0); MEAN CORPUSCULAR VOLUME 81.2 fL (80.0-100.0); MEAN PLATELET VOLUME 7.9 fL (7.4-11.0); MONOCYTES # (AUTO) 0.8 x10^3/uL (0.3-0.8); MONOCYTES % (AUTO) 9.9 % (0.0-13.0); NEUTROPHILS # (AUTO) 6.4 x10^3/uL (2.2-4.8); NEUTROPHILS % (AUTO) 80.9 % (42.0-75.0); PLATELET COUNT 247 X10^3/uL (150.0-450.0); RED BLOOD COUNT 4.68 X10^6/uL (4.7-6.0); RED CELL DISTRIBUTION WIDTH 13.6 % (11.6-16.5)
[2022-12-11 06:19] LABS: ALANINE AMINOTRANSFERASE 317 Units/L (12-78); ALBUMIN 2.8 g/dL (3.4-5.0); ALKALINE PHOSPHATASE 137 Units/L (46-116); ASPARTATE AMINO TRANSFERASE 146 Units/L (15-37); BLOOD UREA NITROGEN 10 mg/dL (7-18); CHLORIDE 101 mmol/L (98-107); COR NA(FOR HYPERGLY) 137 mmol/L (136-145); CREATININE 1.01 mg/dL (0.70-1.30); GLUCOSE 119 mg/dL (65-99); SODIUM 137 mmol/L (136-145); TOTAL PROTEIN 6.5 g/dL (6.4-8.2); eGFR NON BLACK RACES > 60 (>60)
[2022-12-11 06:45] LABS: HEPATITIS B SURFACE ANTIGEN Negative (Negative)
[2022-12-11 08:37] VITALS: BP 137/72; PULSE 52; O2SAT 95
[2022-12-11] MEDS: PEPCID 20 MG VIAL 20 MG in NS 50 ML IV 50 ML IV SCH (10:32)
[2022-12-11] MEDS: PROTONIX INJ 40 MG VIAL IVP SCH (10:33)
[2022-12-11] MEDS: ZOFRAN INJ 4 MG VIAL IVP PRN (11:02)
--- NOTE | 2022-12-12 01:36 | DR.OPNOTE ---
OP NOTE Pre-Op Diagnosis: Chronic cholecystitis, cholestatic jaundice Post-Op Diagnosis: Chronic cholecystitis , possible dysfunction of sphincter of Reji Procedure Date Date Of Procedure: 12/10/22 Procedure: PROCEDURE : LAPROSCOPIC CHOLECYSTECTOMY AND CHOLANGIOGRAM. NARRATIVE: The patient was taken to the operative suite and placed in the supine position. General endotracheal anesthesia induced. Entire abdomen was prepped and draped in sterile fashion. Time out for the procedure obtained. Curvilinear 4cm incision made in the midline below the umbilicus and dissection carried down to the midline fascia. Holding sutures of 0 Vicryl placed on either side of the midline fascia . The midline fascia opened with a vertical incision and the peritoneum opened with Metzenbaum scissors. Tonya canula placed into the peritoneal cavity and the balloon inflated and the Tonya canula secured to the skin with the holding sutures. Abdomen insufflated to 15 mm of mercury with carbon dioxide. Under direct vision two 5 mm trocars placed along the right costal margin and a 5 mm trocar placed in the epigastrium. The gallbladder was chronically inflamed with significant omentum adhered to the gallbladder. The omentum was taken down bluntly and sharply using electrocautery. The gallbladder grasped at the infundibulum and fundus and elevated. Dissection carried out in Calot's triangle identifying both the cystic duct and the cystic artery, i. e. critical view of safety. .A clip was placed on the proximal cystic duct and the cystic duct opened with Metzenbaum scissors and a Tracy cholangio-catheter placed and the balloon inflated. Cholangiogram carried out showing normal diameter common duct and normal caliber common duct . However it did not empty into the duodenum. The patient was given 1 mg of glucagon and 5 minutes later repeated the study and dye emptied into the duodenum with no obvious obstruction. Tracy catheter removed and a clip placed on the distal cystic duct and it was divided. The cystic artery also divided between clips. The peritoneum of the gallbladder incised with electrocautery and the gallbladder removed from the liver bed. Gallbladder was placed in a specimen bag and brought out through the infraumbilical trocar site . The area of the gallbladder fossa irrigated and suctioned free. Surgicel and a flat # 10 Deejay Lama drain placed in the liver bed and brought out through the right lateral most 5 mm trocar incision. The drain secured to the skin with a 2-0 silk suture. All trocars removed . The fascia of the initial incision closed with interrupted 0 Vicryl sutures All incisions closed with 3-0 Vicryl interrupted subcutaneous sutures. The skin closed with steri-strips . A total of 20 cc's of 0.5 % Marcaine was distributed between the four laparoscopic incisions. The patient was extubated and taken to the recovery room in good condition. Type of Anesthesia: General Anesthetic w/ETT Findings: Chronically inflamed gallbladder with omentum adherent to gallbladder, spasm of sphincter of Reji Specimen/Pathology: gallbladder Type of Fluids Used:: Lactated Ringers EBL: < 25 cc Drains/Tubes Comment: flat # 10 Deejay Lama drain Complications:: none Needle/Sponge Count:: correct Disposition/Condition: Pt. tolerated procedure without difficulty. Extubated in the OR and taken to PACU in stable condition.
[2022-12-12 09:35] LABS: ANTI-NUCLEAR ANTIBODY TEST None Detected (None Detected); EBV NUCLEAR AG IGG 85.4 U/mL (0.0-21.9)
[2022-12-12 09:36] LABS: CMV IGG QUANT <0.20 U/mL (<=0.70); CMV IGM ANTIBODY <8.0 AU/mL (<=29.9); EPSTEIN-BARR VCA IGM <10.0 U/mL (0.0-43.9)
== END 2022-12-11 12:20 | disposition home or self-care (01) | DRG 419 ==
LOC: MED/SURG
PROVIDERS: ADMIT Internal Medicine; ATTEND Internal Medicine
PROC: LIVERBX (2022-12-10 15:45)
DX: R50.9 Fever, unspecified; K21.9 Gastro-esophageal reflux disease without esophagitis; R10.13 Epigastric pain; R10.84 Generalized abdominal pain; R11.2 Nausea with vomiting, unspecified; E80.6 Other disorders of bilirubin metabolism; K81.0 Acute cholecystitis